=== PATIENT | female | born 1990 | race Caucasian/White ===

== ENCOUNTER 2024-03-02 18:10 | Emergency (ER) | payer SELFPAY ==
[~2024-03-02] VITALS: Ht 162.6 cm; Wt 72.0 kg
[2024-03-02 18:18] VITALS: BP 122/68; PULSE 90; RESP 16; TEMP 98; O2SAT 97
== END 2024-03-02 20:26 | disposition left against medical advice (07) ==
LOC: ER 18:10
DX: R11.2 Nausea with vomiting, unspecified (principal)
CPT/HCPCS: 93005; 99283